=== PATIENT | female | born 1960 | race Caucasian/White ===

== ENCOUNTER 2017-11-14 13:03 | Emergency (ER) | payer OTHER ==
[~2017-11-14] VITALS: Ht 157.5 cm; Wt 114.2 kg
[2017-11-14 13:10] VITALS: BP 199/83; PULSE 74; RESP 16; TEMP 98.8; O2SAT 94
[2017-11-14] MEDS ORDERED: AZIT250T3 PO (14:28)
[2017-11-14] MEDS ORDERED: PRED20 PO (14:28)
[2017-11-14] MEDS ORDERED: ALBUAER3 INH (14:28)
--- NOTE | 2017-11-14 14:28 | PD ---
HPI Chief Complaint: Cold / Flu Symptoms Time Seen by Provider: 13:45 Travel History International Travel<30 days: No Contact w/Intl Traveler<30days: No Traveled to known affect area: No History of Present Illness HPI This is a 57-year-old female here with a reported productive cough for 5 days. She is reporting yellowish green phlegm. Subjective fevers. She reports this is similar to previous episodes of pneumonia. Symptom severity is moderate. No aggravating or alleviating factors. PFSH Past Medical History Cardiovascular Problems: Yes (htn not on meds) Diminished Hearing: No Hypertension: Yes Immunizations Current: Yes Tetanus Vaccination: < 5 Years Influenza Vaccination: No ?: Not Menopausal: Yes Past Surgical History Abdominal Surgery: Yes (tummy tuck breast reduction) Section: Yes Social History Alcohol Use: No Tobacco Use: No Substance Use: No Allergies-Medications (Allergen,Severity, Reaction): Coded Allergies: No Known Allergies (Unverified , 11/14/17) Reported Meds & Prescriptions Reported Meds & Active Scripts Active No Active Prescriptions or Reported Medications Review of Systems Except as stated in HPI: all other systems reviewed are Neg General / Constitutional: Positive: Fever Eyes: No: Visual changes HENT: No: Headaches Cardiovascular: No: Chest Pain or Discomfort Respiratory: Positive: Cough Gastrointestinal: No: Abdominal Pain Genitourinary: No: Dysuria Musculoskeletal: No: Pain Skin: No Rash Physical Exam Narrative GENERAL: Alert and well-appearing 57-year-old female SKIN: Warm and dry. No rash HEAD: Normocephalic. EYES: No injection or drainage. Ears/nose/throat: No TM erythema. Clear nasal discharge. Mild pharyngeal erythema without tonsillar hypertrophy or exudate. Uvula is midline. Airway is patent. NECK: Supple. No meningismus CARDIOVASCULAR: Regular rate and rhythm RESPIRATORY: Breath sounds equal bilaterally. No accessory muscle use. Rhonchorous cough GASTROINTESTINAL: Abdomen soft, non-tender, nondistended. MUSCULOSKELETAL: No cyanosis, or edema. BACK: No CVA tenderness. Data Data Last Documented VS Vital Signs Date Time Temp Pulse Resp B/P (MAP) Pulse Ox O2 Delivery O2 Flow Rate FiO2 11/14/17 13:10 98.8 74 16 199/83 (121) 94 MDM Medical Decision Making Medical Screen Exam Complete: Yes Emergency Medical Condition: Yes Differential Diagnosis Bronchitis, pneumonia, influenza Narrative Course This is a 57-year-old female here with a reported productive cough 5 days. Injected fevers. She is nontoxic appearing. She does have a rhonchorous cough. She'll be treated with azithromycin, steroids, bronchodilator. He is instructed follow-up the primary doctor. Diagnosis Primary Impression: Bronchitis Referrals: Primary Care Physician Additional Instructions: Antibiotics as directed. Steroids as directed. albuterol inhaler as needed for shortness of breath and wheezing. Rest and stay well hydrated. Scripts Albuterol 8.5 GM Inh (Proair Hfa 8.5 GM Inh) 90 Mcg/Act Aer 2 PUFF INH Q4-6H Y for SHORTNESS OF BREATH, #1 INHALER 0 Refills 108 mcg/actuation Prov: Zeinab Pettit 11/14/17 Prednisone (Prednisone) 20 Mg Tab 40 MG PO DAILY for 4 Days, #8 TAB 0 Refills Prov: Zeinab Pettit 11/14/17 Azithromycin (Azithromycin) 250 Mg Tab 250 MG PO DIRECTED for Infection, #6 TAB 0 Refills Take 2 tabs (500 mg) on day 1 then 1 tab daily x 4 days. Prov: Zeinab Pettit 11/14/17 Disposition: 01 DISCHARGE HOME Condition: Stable Zeinab Pettit Nov 14, 2017 14:28
== END 2017-11-14 14:44 | disposition home or self-care (01) ==
LOC: PHEFT 13:03
DX: J40 Bronchitis, not specified as acute or chronic (principal); I10 Essential (primary) hypertension
CPT/HCPCS: 99283